=== PATIENT | female | born 1955 | race Caucasian/White ===

== ENCOUNTER 2019-06-19 06:21 | Day surgery (SDC) ==
--- NOTE | 2019-06-17 13:56 | HISTORY AND PHYSICAL ---
HISTORY: The patient is a 63-year-old who was referred to me by Dr. Asher in [place], [place]. The patient was scheduled for enterocele and posterior compartment defect repair by Dr. Asher. However, she developed 2 spinal compression fractures, and decided not to have the surgery performed. She is having to take laxatives daily, and is splinting for defecation. She is not digitating, and she is not having any fecal incontinence, but she is having a little bit of stool urgency with some smearing on occasions. She has had a prior anterior compartment defect repair by Dr. Fountain, and is now having some issues with vaginal tissue bleeding due to the exteriorization of her prolapse. She was counseled at length regarding possible sacral colpopexy. However, in light of her other issues medically, decision has been made to proceed with teller tissue repair and apical support procedures. The risks and benefits were discussed at length. She understands and is wishing to proceed with surgical correction. 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 She now has a filter in place. PAST SURGICAL HISTORY: Positive for vaginal hysterectomy, anterior compartment defect repair with placement of mesh, 2 prior cardiac ablations for SVT, and delivery. FAMILY RESOURCE COORDINATOR HISTORY: She is noted to be a para 2-0-0-2 with 1 section and 1 forceps delivery. ALLERGIES: Demerol and quinolones. CURRENT MEDICATIONS: Prilosec 40, Prinivil 20, Klonopin 1, and p.r.n. medications. FAMILY HISTORY: Noncontributory. SOCIAL HISTORY: Negative for tobacco, ETOH, or drugs. PHYSICAL EXAMINATION: VITAL SIGNS: BMI is 27. HEENT: Normocephalic, atraumatic. PERRLA. EOMI. NECK: No thyromegaly. CV: Regular rate and rhythm without murmur, gallop, rub. PULMONARY: Clear. : Some apical banding related to her prior mesh. However, it is slight. She also is having some tenderness of the mesh insertion sites at the sacrospinous ligaments. However, she does have significant advancement of small bowel into the rectovaginal space, consistent with enterocele development. BP is +4 with hard cough. She has a 1 cm erosion of the vaginal mucosa, consistent with the exteriorization of the mucosa. NEUROLOGIC: Afocal. ASSESSMENT AND PLAN: Patient with worsening posterior compartment defect and enterocele development, who is wishing to proceed with surgical intervention. Her history of pulmonary embolism and deep venous thrombosis in recent years was related to bedrest required by her spine. However, she is still wishing to proceed with surgical intervention. The quickest procedure for recovery and increased ambulation is going to be teller tissue repair. We discussed this at length. She understands and is wishing to proceed with surgical intervention. We discussed the risks and benefits involved with all surgery as well. She is admitted at this time for the enterocele repair with sacrospinous suspension. cc: Ronnie Rubio MD
[2019-06-17 14:53] LABS: BASO# 0.03 X1000 (0.0-0.2); BASO% 0.6 % (0.0-0.8); EOS# 0.18 X1000 (0.0-0.7); EOS% 3.8 % (0.0-10.0); HEMATOCRIT 43.1 % (37.0-47.0); HEMOGLOBIN 13.5 g/dL (12.0-16.0); LYMPH% 22.9 % (20.5-51.1); MCH 30.1 PG (27-31); MCHC 31.3 g/dL (33-37); MONO# 0.36 X1000 (0.11-0.59); MONO% 7.5 % (1.7-9.3); MPV 10.8 FL (7.4-10.4); NEUT# 3.13 X1000 (1.4-6.5); NEUT% 65.2 % (42.2-75.2); PLT 205 X1000 (130-400); RBC 4.49 XMIL (4.2-5.4); RDW 15.5 % (11.5-14.5)
[2019-06-17 15:15] LABS: CALCIUM 9.3 mg/dL (8.8-10.2); POTASSIUM 4.2 mmol/L (3.5-5.1)
[2019-06-19] MEDS ORDERED: LR 1,000 ML ONE ×2 (06:50→09:51)
[2019-06-19] MEDS ORDERED: KEFZOL 1 GM/D5W 2 GM/100 ML IVPB ONE (06:50)
[2019-06-19] MEDS ORDERED: TRANSDERM-SCOP ONE (06:56)
[2019-06-19] MEDS ORDERED: REGLAN ONE (06:56)
[2019-06-19] MEDS ORDERED: PEPCID ONE (06:56)
[2019-06-19] MEDS ORDERED: VERSED ONE (07:14)
[2019-06-19] MEDS ORDERED: DIPRIVAN 1% ONE (07:14)
[2019-06-19] MEDS ORDERED: FENTANYL ONE (07:15)
--- NOTE | 2019-06-19 08:03 | H&P REVIEW ---
H&P Update H&P Review: H&P was reviewed and patient was examined, No change has occurred in the patient's condition
[2019-06-19] MEDS ORDERED: SENSORCAINE 0.5%-EPI 1:200,000 ONE (08:06)
[2019-06-19] MEDS ORDERED: D10W 500 ML ONE (08:07)
[2019-06-19] MEDS ORDERED: SODIUM CHLORIDE 0.9% ONE (08:07)
[2019-06-19] MEDS ORDERED: ZOFRAN ONE (09:06)
[2019-06-19] MEDS ORDERED: EPHEDRINE ONE (09:06)
[2019-06-19] MEDS ORDERED: SODIUM CHLORIDE 0.9% 10 ML ONE (09:06)
[2019-06-19] MEDS ORDERED: QUELICIN (DOSE) ONE (09:06)
[2019-06-19] MEDS ORDERED: XYLOCAINE-MPF 2% ONE (09:06)
[2019-06-19] MEDS ORDERED: OFIRMEV 1000 MG/ISOTONIC SOLN 1,000 MG/100 ML BOTTLE ONE (09:06)
[2019-06-19] MEDS ORDERED: TORADOL ONE (09:06)
[2019-06-19] MEDS ORDERED: DECADRON ONE (09:06)
[2019-06-19] MEDS ORDERED: LASIX ONE (09:06)
[2019-06-19 10:05] LABS: URINE SOURCE CATH
[2019-06-19 10:18] LABS: BILIRUBIN URINE NEGATIVE (NEGATIVE); BLOOD URINE SMALL (NEGATIVE); COLOR YELLOW; GLUCOSE URINE 100 mg/dL (NEGATIVE); KETONE URINE NEGATIVE (NEGATIVE); LEUKOCYTES URINE NEGATIVE (NEGATIVE); NITRITE URINE NEGATIVE (NEGATIVE); PROTEIN URINE TRACE mg/dL (NEGATIVE); SP GRAVITY URINE 1.024; TURBIDITY URINE CLEAR (CLEAR); UROBILINOGEN URINE NORMAL (NORMAL)
[2019-06-19 10:19] LABS: UR EPITHELIAL CELLS <10 /HPF (<10); URINE BACTERIA NEGATIVE /HPF; URINE RBC <10 /HPF (<10); URINE WBC <10 /HPF (<10)
[2019-06-19] MEDS ORDERED: PRILOSEC PO SCH (10:56)
[2019-06-19] MEDS ORDERED: PRINIVIL PO SCH (10:56)
[2019-06-19] MEDS ORDERED: ZOFRAN ODT PO PRN (10:56)
[2019-06-19] MEDS ORDERED: NORCO-5 PO PRN (10:56)
[2019-06-19] MEDS ORDERED: KLONOPIN PO ONE (11:15)
[2019-06-19] MEDS ORDERED: COLACE ONE (11:20)
[2019-06-19] MEDS ORDERED: NORCO-5 ONE (11:20)
[2019-06-19] MEDS: LR 1,000 ML IV SCH ×2 (11:29→18:02)
[2019-06-19] MEDS: COLACE PO SCH ×2 (11:30→20:15)
[2019-06-19] MEDS: PERIDEX MT SCH ×2 (11:42→20:15)
--- NOTE | 2019-06-19 13:13 | PROGRESS NOTE ---
DATE: 06/19/2019 SUBJECTIVE: The patient and her friend are still in the outpatient area waiting for a bed. OBJECTIVE: Afebrile. Vital signs are stable. Urine output. ASSESSMENT/PLAN: Routine postoperative care. We will remove Dinh and vaginal pack in the morning and plan on discharge if she has a good evening. cc: Ronnie Rubio MD
--- NOTE | 2019-06-19 15:43 | OPERATIVE NOTE ---
PROCEDURE DATE: 06/19/2019 PREOPERATIVE DIAGNOSIS: Enterocele. POSTOPERATIVE DIAGNOSIS: POP-Q stage IV vault prolapse. PROCEDURE: Enterocele repair, sacrospinous suspension. HISTORY: The patient is a 64-year-old female, who was referred to me by Dr. Asher out of [place], [place] with worsening symptomatic pelvic organ prolapse. The patient had initially had an anterior compartment reconstruction by another physician using vaginal mesh. She has total prolapse now of the apex of the vagina. The mesh in the anterior compartment goes approximately 3 to 4 cm proximal of the urethrovesical neck, and then she has a banding of the mid urethral sling that was placed concomitantly by the same physician that is causing some bridging across the posterior wall of the urethra. We discussed with her surgical correction. She is not really sexually active, but did not want an obliterative procedure, and her health is not significantly good enough to allow for sacrocolpopexy. So, decision was made to proceed with agdaagux tissue repair. OPERATIVE FINDINGS: Consistent with the above. She had stage IV prolapse. She also had some tenderness on the sacrospinous ligament on the right side prior to our surgery as noted on my exam in the office, and she was found to have some adhesions in this area. We were able to easily get to the sacrospinous ligament in our dissection. However, after completion of the procedure when I did the rectal examination, there was a significant amount of banding on the external portion of the colon, so decision was made to actually remove that suture to not have any more banding in that area. OPERATIVE PROCEDURE: Patient taken to operating room placed in the supine position. After adequate general anesthesia obtained, she is placed in candy cane stirrups. The vagina and perineum were prepped and draped in the usual fashion. The apex was sitting approximately 4 cm out and was easily grasped with 2 Allis clamps for demarcation of the angles of the vaginal cuff. At this time, we changed our Allis alignment to midline and involving only the posterior portion. I could palpate where the apical banding from the anterior portion was, and it was keeping the anterior compartment in approximately 4 cm proximal to the urethrovesical neck, but the rest of that anterior compartment was easily coming out. Using the Allis clamps in the midline posteriorly, we initially did a hydrodissection with 0.25% Marcaine with epinephrine. We then made a sagittal incision in the posterior compartment and easily opened this space up. I easily identified the large enterocele, and at this time we went ahead and went up to the neck of the enterocele and used interrupted 2-0 Tycron sutures to pursestring close that area, pushing all the bowel above the sutures as we were closing. Two different layers of sutures were placed in this area to help get the small bowel out of the rectovaginal septum. We then continued with our rectovaginal septum dissection down to the perineal body and easily were able to get down to the ischial spine on the left and the right side. Using an Anchorsure device we fired initially into the left sacrospinous ligament approximately 2 cm medial to the ischial spine. We tagged these sutures for later identification. We also then placed an Anchorsure Prolene suture through the sacrospinous ligament on the patient's right-hand side. We tagged these for later identification. Using a De Santiago's needle, we then incorporated these 2 sets of sutures into the vaginal apex at multiple sites, and we then tied these areas down. In doing this, this elevated the vaginal cuff tremendously and, in doing this, it made it difficult to actually perform the remaining portion of our procedure. However, we continued on with the typical posterior compartment defect repair, so we have closed off the enterocele. We have now performed the sacrospinous ligament suspension, and we tried to plicate as much as we could across the distal portion of the posterior compartment. After doing this, we trimmed off approximately 3 to 4 cm of vaginal mucosa and we closed the posterior compartment with a running 2.0 Vicryl ligature. Repeat examination at this point noted complete resolution of her prolapse. The anterior compartment looked much better. Her distal mesh that had been placed certainly was holding things quite nicely, and the correction of the apex actually fixed most of the anterior compartment issues that she was having. So, decision was made at this point to perform cystoscopy to ensure that we had patent ureters. Bladder was filled with D 10 after removal of the Dinh, and both ureters were effluxing urine. However, she was noted to have pretty significant compression of the posterior urethra from the sling. It was almost a banding in this area, but there was no mesh exposure, so the cystoscope was removed and catheter was placed. Vaginal pack was placed. Rectal examination was performed. In performing the rectal examination, the right side of the colon noted to have significant banding from our sacrospinous ligament suspension suture. So this would have been an external compression of this area. I was concerned that this could be an issue with erosion into this area. So, decision was made to actually open the posterior compartment and remove that suture. This was then accomplished by removing the vaginal pack, opening the vaginal compartment that had just been closed from the 2-0 Vicryl, getting our finger down to our prior suture and then using De Santiago scissors to cut this. Upon doing this, we were then able to remove the Prolene suture with long pickups. Repeat rectal examination performed noted complete resolution of that external impingement of this area, and that way I was not going to have to worry about possible erosion into that area over time. Examination of the left side noted there was some compression, but it was minimal compared to the right side, and I felt that this would be satisfactory for long-term cure. So, we changed gloves. We repeated the closure of the posterior compartment defect repair. We repacked the vagina. A Dinh catheter was placed. Sponge count, instrument count, needle counts correct x3. Packs and drains were Dinh and vaginal pack. [facility] awakened and taken to the recovery room with vital signs stable. cc: Ronnie Rubio MD
[2019-06-19] MEDS: TORADOL IV SCH ×2 (16:17→20:15)
[2019-06-19] MEDS ORDERED: XARELTO PO SCH (17:00)
[2019-06-19] MEDS ORDERED: KLONOPIN PO SCH (21:00)
[2019-06-20] MEDS: TORADOL IV SCH (02:08)
[2019-06-20] MEDS: LR 1,000 ML IV SCH (02:08)
[2019-06-20] MEDS ORDERED: CALTRATE 600 PO SCH (09:00)
[2019-06-20] MEDS ORDERED: ASPIRIN PO SCH (09:00)
[2019-06-20] MEDS ORDERED: KLONOPIN PO SCH (09:00)
[2019-06-20 09:54] VITALS: BP 104/55
--- NOTE | 2019-06-21 00:52 | DISCHARGE SUMMARY ---
ADMISSION DATE: 06/19/2019 DISCHARGE DATE: 06/20/2019 PRINCIPAL DIAGNOSES: 1. Pelvic organ prolapse. 2. Vault prolapse. PROCEDURE: 1. Enterocele repair. 2. Sacrospinous suspension. HISTORY: The patient is a 64-year-old female who has been followed by Dr. Asher in [place] who has been having increasing problems with worsening pelvic organ prolapse. She had a prior mesh procedure in the anterior compartment, which made the second operative procedure more difficult. The patient underwent an enterocele repair and sacrospinous suspension. However, the findings at that time noted a deviated colon from her prior surgery and we had to actually deconstruct a portion of our reconstruction due to the banding across the colon and concern for possible erosion down the road. Her postoperative course has been uncomplicated. Our blood loss time at the time of surgery was approximately 30 mL. She is currently undergoing voiding trial and is being discharged home with instructions for followup in 3 to 4 weeks. DISCHARGE MEDICATIONS: Colace and Parrish. DISCHARGE INSTRUCTIONS: She was instructed on a regular diet, decreased activity. cc: Ronnie Rubio MD
== END 2019-06-20 09:59 | disposition home or self-care (01) ==
LOC: PAT 06:21 → SURHOLD 06:21 → OPS 06:21 → 4N 12:05 → OPS 06-20 09:59
PROVIDERS: ATTEND Obstetrics & Gynecology